=== PATIENT | male | born 1975 | race Caucasian/White ===

== ENCOUNTER 2019-10-29 08:12 | Emergency (ER) | payer SELFPAY ==
[~2019-10-29] VITALS: Ht 188 cm; Wt 108.9 kg
[2019-10-29 08:14] VITALS: Ht 188 cm; Wt 108.9 kg
[2019-10-29 10:09] VITALS: BP 107/54
== END 2019-10-29 10:09 | disposition home or self-care (01) ==
LOC: ED 08:12
DX: F41.9 Anxiety disorder, unspecified (principal); J06.9 Acute upper respiratory infection, unspecified; I10 Essential (primary) hypertension
CPT/HCPCS: 87804; J2060; Q0092; U0002